=== PATIENT | male | born 1985 | race Caucasian/White ===

== ENCOUNTER 2016-09-07 15:47 | Emergency (ER) | payer MEDICAID ==
[~2016-09-07] VITALS: Ht 175.3 cm; Wt 64.0 kg
[2016-09-07 16:04] VITALS: BP 123/84; PULSE 78; RESP 20; TEMP 98.3; O2SAT 98
--- NOTE | 2016-09-07 16:24 | PD ---
HPI Chief Complaint: Bite or Sting Time Seen by Provider: 16:13 Travel History International Travel<30 days: No Contact w/Intl Traveler<30days: No Traveled to known affect area: No History of Present Illness HPI This 31-year-old male says he was bitten by something about 2 hours ago. He noted some redness and swelling of his leg and he had some pain in the back of his thighs are thought he should come for evaluation. He did not see what bit him. He was in some tall grass at that time. He has no nausea or vomiting or other systemic symptoms. [facility] Past Medical History Medical History: Denies Significant Hx Tetanus Vaccination: < 5 Years Past Surgical History Surgical History: No Previous Surgery Social History Alcohol Use: Yes Tobacco Use: Yes Substance Use: No Allergies-Medications (Allergen,Severity, Reaction): Coded Allergies: No Known Allergies (Unverified , 09/07/16) Reported Meds & Prescriptions Reported Meds & Active Scripts Active No Active Prescriptions or Reported Medications Review of Systems General / Constitutional: No: Fever, Chills Eyes: No: Diploplia, Blurred Vision HENT: No: Headaches, Vertigo Cardiovascular: No: Chest Pain or Discomfort Respiratory: No: Cough, Shortness of Breath Gastrointestinal: No: Nausea, Vomiting Genitourinary: No: Urgency, Frequency Musculoskeletal: Positive: Myalgias, Cramping Skin: Positive Rash Physical Exam Narrative GENERAL: Well-developed male SKIN: Focused skin assessment warm/dry. Lateral aspect of the right lower leg there is an area of erythema that starts at the ankle and extends up a few inches. There is no puncture wound seen. There is no ecchymosis. HEAD: Atraumatic. Normocephalic. EYES: Pupils equal and round. No scleral icterus. No injection or drainage. ENT: No nasal bleeding or discharge. Mucous membranes pink and moist. NECK: Trachea midline. No JVD. CARDIOVASCULAR: Regular rate and rhythm. No murmur appreciated. RESPIRATORY: No accessory muscle use. Clear to auscultation. Breath sounds equal bilaterally. MUSCULOSKELETAL: No obvious deformities. No clubbing. No cyanosis. No edema. Some mild swelling of the right lower leg as above NEUROLOGICAL: Awake and alert. No obvious cranial nerve deficits. Motor grossly within normal limits. Normal speech. PSYCHIATRIC: Appropriate mood and affect; insight and judgment normal. Data Data Last Documented VS Vital Signs Date Time Temp Pulse Resp B/P Pulse Ox O2 Delivery O2 Flow Rate FiO2 09/07/16 16:04 98.3 78 20 123/84 98 Orders Prednisone (Deltasone) (09/07/16 16:30) MDM Medical Decision Making Medical Screen Exam Complete: Yes Emergency Medical Condition: Yes Medical Record Reviewed: Yes Differential Diagnosis Differential includes local reaction to insect bite, snake bite, other injury Narrative Course I do not see any puncture wound or evidence of a spider bite. There is no ecchymosis after 2 hours in the minimum swelling is minimal. I believe this is a local reaction to an insect bite. He will be given a single dose of prednisone now recommendations to return if increased swelling or pain Diagnosis Primary Impression: Local reaction to insect sting Qualified Code: T63.484A - Local reaction to insect sting, undetermined intent , initial encounter Additional Instructions: Return if increased swelling or pain Scripts No Active Prescriptions or Reported Meds Disposition: 01 DISCHARGE HOME Condition: Stable Reymundo Naqvi MD Sep 07, 2016 16:24
[2016-09-07] MEDS ORDERED: predniSONE 20 MG TAB PO ONE (16:30)
== END 2016-09-07 16:33 | disposition home or self-care (01) ==
LOC: PHED 15:47
DX: S90.561A Insect bite (nonvenomous), right ankle, initial encounter (principal); R22.41 Localized swelling, mass and lump, right lower limb; W57.XXXA Bitten or stung by nonvenomous insect and other nonvenomous arthropods, initial encounter; Y93.9 Activity, unspecified; Y92.9 Unspecified place or not applicable
CPT/HCPCS: 99283; J7512

== ENCOUNTER 2017-05-25 14:22 | Emergency (ER) | payer MEDICAID ==
[~2017-05-25] VITALS: Ht 175.3 cm; Wt 66.8 kg
[2017-05-25 14:30] VITALS: BP 137/78; PULSE 70; RESP 16; TEMP 97.6; O2SAT 98
[2017-05-25] MEDS ORDERED: ACETAMINOPHEN/HYDROcodone 325 MG/5 MG TAB PO ONE (14:45)
[2017-05-25] MEDS ORDERED: DICL75TA PO (14:50)
--- NOTE | 2017-05-25 14:50 | PD ---
HPI Chief Complaint: Injury Time Seen by Provider: 14:34 Travel History International Travel<30 days: No Contact w/Intl Traveler<30days: No Traveled to known affect area: No History of Present Illness HPI 52-year-old male that presents to the ED for evaluation of injury to his left hand. Per patient he and his friend were moving a heavy his of aluminum and his hand got stuck between the aluminum and concrete. He states that she's been having pain on his hands since. He is right-handed. Patient states that he is able to move all fingers and for the most part history of having some radiating pain to his elbow that has now improved. Per patient is medically concerned about his hands. He denies any other medical issues. He does have a superficial abrasion to the dorsal aspect of the left hand. States been up-to- date with his tetanus. No allergies to medication. Has not taken anything for this. No numbness, tingling, weakness. No prior injuries. Pain per patient is 7 out of 10. PFSH Past Medical History Diminished Hearing: No Tetanus Vaccination: < 5 Years Social History Alcohol Use: Yes Tobacco Use: Yes Substance Use: No Allergies-Medications (Allergen,Severity, Reaction): Coded Allergies: No Known Allergies (Unverified Adverse Reaction, Unknown, 05/25/17) Reported Meds & Prescriptions Reported Meds & Active Scripts Active No Active Prescriptions or Reported Medications Review of Systems Except as stated in HPI: all other systems reviewed are Neg Physical Exam Narrative GENERAL: SKIN: Warm and dry. HEAD: Atraumatic. Normocephalic. EYES: Pupils equal and round. No scleral icterus. No injection or drainage. ENT: No nasal bleeding or discharge. Mucous membranes pink and moist. NECK: Trachea midline. No JVD. CARDIOVASCULAR: Regular rate and rhythm. RESPIRATORY: No accessory muscle use. Clear to auscultation. Breath sounds equal bilaterally. GASTROINTESTINAL: Abdomen soft, non-tender, nondistended. Hepatic and splenic margins not palpable. MUSCULOSKELETAL: Extremities without clubbing, cyanosis, or edema. No obvious deformities. Full range of motion of the upper and lower extremities bilaterally. 2+ pulses bilaterally. Patient has superficial abrasion less than half a centimeter on the dorsal aspect of the left hand. We'll approximated. No bleeding noted. Tender to palpation in this area. Minimal bruising noted. No obvious point deformity noted. Full range of motion of all digits. No injuries or deformities noted any other extremity other than the left hand. NEUROLOGICAL: Awake and alert. No obvious cranial nerve deficits. Motor grossly within normal limits. Five out of 5 muscle strength in the arms and legs. Normal speech. PSYCHIATRIC: Appropriate mood and affect; insight and judgment normal. Data Data Last Documented VS Vital Signs Date Time Temp Pulse Resp B/P (MAP) Pulse Ox O2 Delivery O2 Flow Rate FiO2 05/25/17 14:30 97.6 70 16 137/78 (97) 98 Orders Orders Hand, Complete ([id number]) (05/25/17 14:40) Acetamin-Hydrocod 325-5 Mg ([place] 5-325 (05/25/17 14:45) MDM Medical Decision Making Medical Screen Exam Complete: Yes Emergency Medical Condition: Yes Medical Record Reviewed: Yes Interpretation(s) X-ray of the left hand show no sign of bony injury. Differential Diagnosis Fracture versus sprain versus strain versus contusion versus abrasion Narrative Course 32-year-old male that presents to the ED for evaluation of left hand injury. Patient was properly examined and was found to have signs and symptoms concerning for bony injuries. X-rays were done. X-rays were negative for this. Patient was reassured. At this time I recommend trial diclofenac sodium. Ice or warm compresses. Follow with PCP. See ED worsening symptoms. Diagnosis Primary Impression: Contusion of hand, left Qualified Codes: S60.222A - Contusion of left hand, initial encounter Patient Instructions: General Instructions, Narcotic given in the ED Additional Instructions: Take medications as prescribed. Follow-up with PCP. See ED for any worsening symptoms. Do not drink or drive while taking pain medication. Apply ice or heat as needed for pain Med/Other Pt SpecificInfo: Prescription(s) given Scripts No Active Prescriptions or Reported Meds Disposition: 01 DISCHARGE HOME Condition: Stable Dakota Rudd May 25, 2017 14:50
--- NOTE | 2017-05-25 15:04 | RADRPT ---
EXAM DATE/TIME: 05/25/2017 14:42 [facility] COMPARISON: No previous studies available for comparison. INDICATIONS : Complains of pain in left hand, 2nd and 3rd digits after heavy object fell on hand while working. MEDICAL HISTORY : None. SURGICAL HISTORY : None. ENCOUNTER: Initial ACUITY: 1 day PAIN SCORE: 5/10 LOCATION: Left hand, 2nd and 3rd digits FINDINGS: Three view examination of the left hand demonstrates no soft tissue swelling, dislocation, or fractur e. The carpal bones appear intact. The interphalangeal and metacarpophalangeal joints are intact. Bony mineralization is normal. CONCLUSION: Normal examination for a patient of this age. Stanton Daley MD FACR on May 25, 2017 at 14:59 Board Certified Radiologist. This report was verified electronically.
== END 2017-05-25 15:10 | disposition home or self-care (01) ==
LOC: PHEFT 14:22
DX: S60.222A Contusion of left hand, initial encounter (principal); W23.0XXA Caught, crushed, jammed, or pinched between moving objects, initial encounter; Y93.89 Activity, other specified
CPT/HCPCS: 73130; 99283